=== PATIENT | female | born 1945 | race Caucasian/White ===

== ENCOUNTER 2019-01-08 05:44 | Inpatient (IN) | payer MEDICARE ==
[2019-01-08] MEDS ORDERED: CEFAZOLIN 2 GM/D5W RTU 2 GM/50 ML RTUPB IV PRN (08:47)
--- NOTE | 2019-01-08 13:55 | RADIOLOGY REPORT (SQ) ---
EXAM DESCRIPTION: CHEST SINGLE VIEW COMPLETED DATE/TIME: 01/08/2019 1:44 pm REASON FOR STUDY: PRE OP COMPARISON: None. EXAM PARAMETERS: NUMBER OF VIEWS: One view. TECHNIQUE: Single frontal radiographic view of the chest acquired. RADIATION DOSE: NA LIMITATIONS: None. FINDINGS: LUNGS AND PLEURA: Linear marking lateral aspect the left base. Differential includes subs egmental atelectasis, infiltrate or chronic change the latter of which cannot be substantiated withou t previous chest x-rays. Lungs otherwise clear. MEDIASTINUM AND HILAR STRUCTURES: No masses. Contour normal. HEART AND VASCULAR STRUCTURES: Heart normal in size. Normal vasculature. BONES: Transverse fracture through the midshaft of the right humerus with overlapping of the fracture fragments. Intramedullary noelle transverse an old fracture of the left humerus. HARDWARE: None in the chest. OTHER: No other significant finding. IMPRESSION: Linear marking left base that by radiographic appearance may represent chronic change or scarring but cannot be substantiated without previous chest x-rays. Subsegmental atelectasis or inf iltrate is in the differential. Acute transverse fracture of the midshaft of the right humerus with overlapping of the fracture fragments. TECHNICAL DOCUMENTATION: JOB ID: [id number] [employer]- All Rights Reserved Reading location - IP/workstation name: [email or web address]
[2019-01-08 14:38] LABS: HEMATOCRIT 33.5 % (36.0-47.0); MEAN CORPUSCULAR HEMOGLOBIN 31.7 pg (27.0-33.4); MEAN CORPUSCULAR VOLUME 96 fl (80-97); PLATELET COUNT 286 10^3/uL (150-450); RED BLOOD COUNT 3.49 10^6/uL (3.72-5.28); RED CELL DISTRIBUTION WIDTH 14.6 % (11.5-14.0); WHITE BLOOD COUNT 7.6 10^3/uL (4.0-10.5)
[2019-01-08] MEDS ORDERED: BUPIVACAINE HCL 0.5 % INJ/PF 30 ML SDV ONE (14:43)
[2019-01-08 14:55] LABS: ANION GAP 7 (5-19); BLOOD UREA NITROGEN 22 mg/dL (7-20); CALCIUM 9.4 mg/dL (8.4-10.2); CARBON DIOXIDE 28 mmol/L (22-30); CHLORIDE 106 mmol/L (98-107); GLUCOSE 84 mg/dL (75-110); POTASSIUM 5.1 mmol/L (3.6-5.0); SODIUM 140.9 mmol/L (137-145)
[2019-01-08] MEDS ORDERED: CEFAZOLIN 2 GM/D5W RTU 2 GM/50 ML RTUPB IV ONE (15:10)
[2019-01-08] MEDS ORDERED: HYDROMORPHONE HCL INJ/PF 2 MG/ML AMPULE ONE (15:19)
[2019-01-08] MEDS ORDERED: MIDAZOLAM 2 MG/2 ML INJ ONE (15:19)
[2019-01-08] MEDS ORDERED: FENTANYL CITRATE INJ/PF 250 MCG/5 ML AMPULE ONE (15:19)
[2019-01-08] MEDS ORDERED: PROPOFOL INJ 200 MG/20 ML VIAL IV ONE (15:20)
[2019-01-08] MEDS ORDERED: ACETAMINOPHEN 0 MG/0 ML RTUPB IV ONE (15:20)
[2019-01-08] MEDS ORDERED: DEXTROSE 40% GEL 15 GM TUBE PO PRN ×2 (16:27)
[2019-01-08] MEDS ORDERED: GLUCAGON,HUMAN RECOMB 1 MG INJ SUBCUT PRN (16:27)
[2019-01-08] MEDS ORDERED: DEXTROSE 50%-WATER 25 GM/50 ML DISP.SYRIN IV PRN ×2 (16:27)
--- NOTE | 2019-01-08 16:33 | PDOC H&P ---
History of Present Illness Admission Date/PCP: ASHLEY LAMA Patient complains of: Right arm pain History of Present Illness: CAROLYN BOWIE is a 73 year old female who sustained a fall at home onto her right humerus. She was seen at the emergency room at an outside facility where x-rays demonstrate a midshaft humerus fracture. Conservative measures were attempted including fracture bracing the patient continued to have persistent angulation and displacement. After discussing treatment options decision was made to proceed with operative treatment. Past Medical History Cardiac Medical History: Reports: Hyperlipidema, Hypertension Denies: Atrial Fibrillation, Congestive Heart Failure, Coronary Artery Disease, Myocardial Infarction, Peripheral Vascular Disease, Pulmonary Embolism, Heart Murmur Pulmonary Medical History: Reports: Bronchitis - hx of bronchitis Denies: Asthma, Chronic Obstructive Pulmonary Disease (COPD), Pneumonia, Respiratory Failure, Sleep Apnea, Tuberculosis Neurological Medical History: Reports: Seizures Malignancy Medical History: Denies: Lung Cancer GI Medical History: Denies: Crohn's Disease, Gastroesophageal Reflux Disease, Hiatal Hernia Musculoskeltal Medical History: Reports: Arthritis Denies: Fibromyalgia Psychiatric Medical History: Reports: Dementia Hematology: Denies: Anemia Past Surgical History Past Surgical History: Denies: Amputation, Colostomy Social History Smoking Status: Former Smoker Hx Recreational Drug Use: No Hx Prescription Drug Abuse: No Family History Parental Family History Reviewed: No Children Family History Reviewed: No Sibling(s) Family History Reviewed.: No Medication/Allergy Home Medications: Aspirin [Aspirin 81 mg Chewable Tablet] 81 mg PO DAILY 01/08/19 Celecoxib 200 mg PO DAILY 01/08/19 Folic Acid [Folvite 1 mg Tablet] 1 mg PO DAILY 01/08/19 Gabapentin [Neurontin 100 mg Capsule] 100 mg PO DAILY 01/08/19 Losartan Potassium 100 mg PO DAILY 01/08/19 Meclizine HCl [Antivert 25 mg Tablet] 25 mg PO DAILY PRN 01/08/19 Mirabegron [Myrbetriq] 50 mg PO DAILY 01/08/19 Oxybutynin Chloride [Oxybutynin Chloride ER] 10 mg PO DAILY 01/08/19 Pravastatin Sodium 80 mg PO DAILY 01/08/19 Ropinirole HCl 0.5 mg PO DAILY 01/08/19 Rosuvastatin Calcium 10 mg PO DAILY 01/08/19 Sertraline HCl [Zoloft 50 mg Tablet] 50 mg PO DAILY 01/08/19 Tramadol HCl [Ultram] 50 mg PO PRN PRN 01/08/19 Valsartan 160 mg PO DAILY 01/08/19 Allergies/Adverse Reactions: morphine Allergy (Verified 01/08/19 08:47) Sulfa (Sulfonamide Antibiotics) Allergy (Verified 01/08/19 08:47) Review of Systems Constitutional: ABSENT: chills, fever(s), headache(s), weight gain, weight loss Eyes: ABSENT: visual disturbances Ears: ABSENT: hearing changes Cardiovascular: ABSENT: chest pain, dyspnea on exertion, edema, orthropnea, palpitations Respiratory: ABSENT: cough, hemoptysis Gastrointestinal: ABSENT: abdominal pain, constipation, diarrhea, hematemesis, hematochezia, nausea, vomiting Genitourinary: ABSENT: dysuria, hematuria Integumentary: ABSENT: rash, wounds Neurological: ABSENT: abnormal gait, abnormal speech, confusion, dizziness, focal weakness, syncope Psychiatric: ABSENT: anxiety, depression, homidical ideation, suicidal ideation Endocrine: ABSENT: cold intolerance, heat intolerance, menstrual abnormalities, polydipsia, polyuria Hematologic/Lymphatic: ABSENT: easy bleeding, easy bruising, lymphadenopathy Physical Exam Vital Signs: Temp Pulse Resp BP Pulse Ox 98.1 F 74 16 127/70 H 97 01/08/19 13:30 01/08/19 13:30 01/08/19 13:30 01/08/19 13:30 01/08/19 13:30 Intake & Output 01/07/19 01/08/19 01/09/19 06:59 06:59 06:59 Intake Total 0 Balance 0 Weight 45 kg General appearance: PRESENT: no acute distress, well-developed, well-nourished Head exam: PRESENT: atraumatic, normocephalic Eye exam: PRESENT: conjunctiva pink, EOMI, PERRLA. ABSENT: scleral icterus Ear exam: PRESENT: normal external ear exam Mouth exam: PRESENT: moist, tongue midline Neck exam: PRESENT: full ROM. ABSENT: carotid bruit, JVD, lymphadenopathy, thyromegaly Cardiovascular exam: PRESENT: RRR. ABSENT: diastolic murmur, rubs, systolic murmur Pulses: PRESENT: normal dorsalis pedis pul, +2 pedal pulses bilateral Vascular exam: PRESENT: normal capillary refill GI/Abdominal exam: PRESENT: normal bowel sounds, soft. ABSENT: distended, guarding, mass, organolmegaly, rebound, tenderness Rectal exam: PRESENT: deferred Musculoskeletal exam: PRESENT: other - Right upper extremity: Splint fracture brace intact. Patient has full MP/IP joint flexion. Weakness with EPL and wrist extension. Wrist extension to 30 degrees with strength 3+/5. No sensory deficits. No open wound. Neurological exam: PRESENT: alert, awake, oriented to person, oriented to place, oriented to time, oriented to situation, CN II-XII grossly intact. ABSENT: motor sensory deficit Psychiatric exam: PRESENT: appropriate affect, normal mood. ABSENT: homicidal ideation, suicidal ideation Skin exam: PRESENT: dry, intact, warm. ABSENT: cyanosis, rash Results Laboratory Results: 01/08/19 14:25 01/08/19 14:25 01/08/19 01/08/19 14:25 14:25 WBC 7.6 RBC 3.49 L Hgb 11.0 L Hct 33.5 L MCV 96 MCH 31.7 MCHC 33.0 RDW 14.6 H Plt Count 286 Sodium 140.9 Potassium 5.1 H Chloride 106 Carbon Dioxide 28 Anion Gap 7 BUN 22 H Creatinine 0.86 Est GFR ( Amer) > 60 Est GFR (Non-Af Amer) > 60 Glucose 84 Calcium 9.4 Impressions: Chest X-Ray 01/08/19 00:00 IMPRESSION: Linear marking left base that by radiographic appearance may re present chronic change or scarring but cannot be substantiated without previous chest x-rays. Subsegmental atelectasis or infiltrate is in the differential. Acute transverse fracture of the midshaft of the right humerus with overlapping of the fracture fragments. Assessment & Plan - Diagnosis (1) Humerus fracture Qualifiers: Encounter type: subsequent encounter Humerus Location: shaft Fracture type: closed Fracture alignment: displaced Laterality: right Is this a current diagnosis for this admission?: Yes Plan: Patient sustained a midshaft humerus fracture. Plan is to proceed with operative intervention which includes open reduction internal fixation. Risks and benefits of surgical procedure have been explained to the patient patient v erbalized understanding consented for surgical procedure.
--- NOTE | 2019-01-08 17:02 | EKG REPORT ---
SEVERITY:- NORMAL ECG - SINUS RHYTHM : Confirmed by: hSant Bellamy MD 08-Jan-2019 17:02:26
[2019-01-08] MEDS: FENTANYL CITRATE INJ/PF 100 MCG/2 ML AMPUL IV SCH (17:21)
[2019-01-08] MEDS ORDERED: RINGERS SOLUTION,LACTATED 1,000 ML IV PRN (23:55)
[2019-01-09] MEDS: FENTANYL CITRATE INJ/PF 100 MCG/2 ML AMPUL IV SCH ×4 (05:26→17:15)
--- NOTE | 2019-01-09 08:03 | PDOC PROGRESS REPORT ---
Subjective Subjective:: Patient lying in bed comfortably. No issues overnight. Denies chest pain or shortness of breath. Reason For Visit: S42.301S UNSPECIFIED FRACTURE OF SHAFT OF HUMERUS, Physical Exam Vital Signs: Temp Pulse Resp BP Pulse Ox 98.7 F 86 18 102/58 L 98 01/09/19 03:57 01/09/19 03:57 01/09/19 03:57 01/09/19 03:57 01/09/19 03:57 Intake & Output 01/08/19 01/09/19 01/10/19 06:59 06:59 06:59 Intake Total 266 Balance 266 Weight 46.2 kg General appearance: PRESENT: no acute distress, well-developed, well-nourished Head exam: PRESENT: atraumatic, normocephalic Eye exam: PRESENT: conjunctiva pink, EOMI, PERRLA. ABSENT: scleral icterus Ear exam: PRESENT: normal external ear exam Mouth exam: PRESENT: moist, tongue midline Neck exam: PRESENT: full ROM. ABSENT: carotid bruit, JVD, lymphadenopathy, thyromegaly Cardiovascular exam: PRESENT: RRR. ABSENT: diastolic murmur, rubs, systolic murmur Pulses: PRESENT: normal dorsalis pedis pul, +2 pedal pulses bilateral Vascular exam: PRESENT: normal capillary refill GI/Abdominal exam: PRESENT: normal bowel sounds, soft. ABSENT: distended, guarding, mass, organolmegaly, rebound, tenderness Rectal exam: PRESENT: deferred Musculoskeletal exam: PRESENT: other - Right upper extremity: In fracture brace. Mild swelling and ecchymosis. Compartments soft and compressible. No sensory deficits. Full active extension of the IP/MP joints weakness with resisted EPL function intact thumb retropulsion. Neurological exam: PRESENT: alert, awake, oriented to person, oriented to place, oriented to time, oriented to situation, CN II-XII grossly intact. ABSENT: motor sensory deficit Psychiatric exam: PRESENT: appropriate affect, normal mood. ABSENT: homicidal ideation, suicidal ideation Skin exam: PRESENT: dry, intact, warm. ABSENT: cyanosis, rash Results Laboratory Results: 01/08/19 14:25 01/08/19 14:25 01/08/19 01/08/19 14:25 14:25 WBC 7.6 RBC 3.49 L Hgb 11.0 L Hct 33.5 L MCV 96 MCH 31.7 MCHC 33.0 RDW 14.6 H Plt Count 286 Sodium 140.9 Potassium 5.1 H Chloride 106 Carbon Dioxide 28 Anion Gap 7 BUN 22 H Creatinine 0.86 Est GFR ( Amer) > 60 Est GFR (Non-Af Amer) > 60 Glucose 84 Calcium 9.4 Impressions: Chest X-Ray 01/08/19 00:00 IMPRESSION: Linear marking left base that by radiographic appearance may represent chronic change or scarring but cannot be substantiated without previous chest x-rays. Subsegmental atelectasis or infiltrate is in the differential. Acute transverse fracture of the midshaft of the right humerus with overlapping of the fracture fragments. Assessment & Plan - Diagnosis (1) Humerus fracture Qualifiers: Encounter type: subsequent encounter Humerus Location: shaft Fracture type: closed Fracture alignment: displaced Laterality: right Is this a current diagnosis for this admission?: Yes Plan: Patient sustained a midshaft humerus fracture. Plan is to proceed with operative intervention which includes open reduction internal fixation, possible intramedullary nailing. Risks and benefits of surgical procedure have been explained to the patient risks include anesthetic complications, excessive bleeding, infection, injury to surrounding nerves, vessels and tendons, bruising, healing difficulties, scar formation, posttraumatic arthritis and any unforseen complication. Patient has verbalized understanding consented for the surgical procedure.
[2019-01-09] MEDS ORDERED: LIDOCAINE 2% INJ-PF (20 MG/ML) 2 ML AMPUL ONE (08:13)
[2019-01-09] MEDS ORDERED: SUCCINYLCHOLINE CHLORIDE INJ 200 MG/10 ML VIAL ONE (08:13)
[2019-01-09] MEDS ORDERED: ONDANSETRON HCL INJ/PF 4 MG/2 ML SDV ONE (08:13)
[2019-01-09] MEDS ORDERED: GLYCOPYRROLATE 1 MG/5 ML SYRINGE ONE (08:13)
[2019-01-09] MEDS ORDERED: DEXAMETHASONE SOD PHOSPHATE INJ 4 MG/1 ML VIAL ONE (08:13)
[2019-01-09] MEDS ORDERED: PROPOFOL INJ 200 MG/20 ML VIAL IV ONE (20:02)
[2019-01-09] MEDS ORDERED: MIDAZOLAM 2 MG/2 ML INJ ONE (20:02)
[2019-01-09] MEDS ORDERED: DEXMEDETOMIDINE INJ 80 MCG/20 ML VIAL IV ONE (20:02)
[2019-01-09] MEDS ORDERED: FENTANYL CITRATE INJ/PF 250 MCG/5 ML AMPULE ONE (20:02)
[2019-01-09] MEDS ORDERED: ACETAMINOPHEN 1,000 MG/100 ML RTUPB IV ONE (20:02)
[2019-01-09] MEDS ORDERED: EPHEDRINE SULFATE INJ 50 MG/1 ML AMPULE ONE (20:02)
[2019-01-09] MEDS ORDERED: CEFAZOLIN INJ 1 GM VIAL ONE (20:16)
[2019-01-09] MEDS ORDERED: BUPIVACAINE HCL 0.5 % INJ/PF 30 ML SDV ONE (21:00)
[2019-01-09] MEDS ORDERED: BUPIVACAINE HCL 0.5 % INJ/PF 30 ML SDV INJ ONE (21:30)
[2019-01-09] MEDS ORDERED: PROMETHAZINE HCL INJ 25 MG/1 ML VIAL IV PRN (21:53)
[2019-01-09] MEDS ORDERED: FENTANYL CITRATE INJ/PF 100 MCG/2 ML AMPUL IV PRN ×3 (21:53)
[2019-01-09] MEDS ORDERED: ONDANSETRON HCL INJ/PF 4 MG/2 ML SDV IV PRN (21:53)
[2019-01-09] MEDS ORDERED: DIPHENHYDRAMINE HCL 50 MG/ML VIAL IV PRN (21:53)
--- NOTE | 2019-01-09 22:44 | Operative Report ---
Operative Report DATE OF SURGERY: 01/09/19 PREOPERATIVE DIAGNOSIS: Right humeral shaft fracture POSTOPERATIVE DIAGNOSIS: Same OPERATION: Open Reduction w/ Intramedullary nail right humeral shaft fracture SURGEON: FRANK JANG ANESTHESIA: GA COMPLICATIONS: None ESTIMATED BLOOD LOSS: <75cc PROCEDURE: Indication for above procedure: 73-year-old female who sustained a fall onto her right upper extremity. Patient was seen at an outside emergency room where x-rays demonstrate midshaft humerus fracture. Patient was placed in a splint but continued to have malalignment. Patient was then placed in a fracture brace however with subsequent follow-ups fracture continues to demonstrate malposition thus decision was made to proceed with operative treatment. Risks and benefits of the surgical procedure were explained to the patient she verbalized understanding consented for the procedure. Procedure In Detail: Patient was seen and evaluated in the preoperative holding area. The RIGHT upper extremity was initialized and marked. Patient received 2g of Ancef IV for bacterial prophylaxis. Patient was taken back to the operative room where transferred to the operative table and placed under general anesthesia. Once they were adequately anesthetized patient was placed in the beachchair position. Cervical spine placed in neutral position noninvolved left upper extremity and bilateral lower extremities padded. A surgical team debriefing was performed ensuring all instrumentation was available, the surgical procedure was discussed with possible concerns reviewed. The upper extremity was prepped with ChloraPrep and draped in a sterile fashion. A timeout was done identifying correct patient, procedure and extremity everyone in attendance agree with this and verbalized no concerns. Longitudinal skin incision was made along the anterior lateral aspect of the acromion. Blunt dissection was performed thru the anterior raphe deltoid and the rotator cuff was exposed. Longitudinal incision was made thru the rotator cuff at the greater tuberosity. The starting point for the T2 Jeanette humeral nail was then established under C arm fluoroscopy. This was advanced distally. The 10 mm opening reamer was then utilized. Closed reduction was then attempted unfortunately given the amount of displacement and longevity closed reduction was not successful and thus open reduction was required. Longitudinal skin incision was made along the anterior-lateral aspect of the humerus the interval between the triceps and biceps/brachialis was established via blunt dissection. There was evidence of early healing and fibrous tissue along the fracture site along with contracture of the brachialis limiting manipulation of the fracture. Blunt dissection was continued around the fracture site. There is a anterior fracture fragment secured into scar tissue which was not disturbed. Once the fracture site was adequately exposed insuring no impingement of neurovascular structures the fracture was reduced into position and the reduction tool advanced past the fracture site. C-arm fluoroscopy was obtained confirming reduction of the fracture. Once this was confirmed the guidewire was advanced and a 8 mm x 230 mm nail was determined with the measuring device. Reaming began with a 8 mm reamer up to a 9 mm reamer getting adequate fixation. A 8 mm x 230 mm Valmora T2 humeral nail was advanced past the fracture site. Through the aiming arm small incisions were made within the deltoid blunt dissection was performed down to the humeral shaft was better care focused on avoiding disruption of neurovascular structures including the axillary nerve. Proximal locking was obtained with a 4 mm x 45 mm and a 4 mm x 34 mm proximal locking screws obtaining fixation within the far cortex. Perfect circles were then obtained in a longitudinal skin incision was made anteriorly. Blunt dissection was performed in the interval between the biceps and brachialis was utilized retracting the lateral antebrachial cutaneous nerve to expose the anterior humerus. Compression was applied to the fracture and rotation was determined with external and internal rotation of the humerus to obtain adequate alignment. The near and far cortices were then drilled and a 4 mm x 24 mm distal locking screw placed obtaining adequate fixation. Final C-arm fluoroscopy demonstrated demonstrated acceptable reduction of the fracture with compression at the fracture site. Adequate distal and proximal locking fixation. Under C-arm fluoroscopy life there was no evidence of fracture or instability. Wounds were then copiously irrigated with normal saline. Rotator cuff was closed with [id number] #2 FiberWire. Deltoid fascia was closed with 0 Vicryl suture. Subcutaneous tissues closed with 4-0 Monocryl suture. Skin was closed with bridget. 20 cc of 0.5% bupivacaine without epinephrine was injected for postoperative pain control. Wound was dressed with Acticoat and OpSite. Patient was placed in a sling with a Cryo/Cuff. Sponge counts, instrument counts, needle counts were correct. Patient was then awoken from anesthesia. Transferred from the operating room table to the operating room stretcher. There was no intraoperative complications patient tolerated procedure well stable to PACU. Postoperative plan: Patient will follow in the office in 2 weeks we will obtain radiographs. Patient will be started on Xarelto for DVT prophylaxis and discharged on aspirin. Anticipate discharge 01/11/19 to [facility]. Implants: Valmora T2 Humerus 8mm x 230mm
[2019-01-10] MEDS: FENTANYL CITRATE INJ/PF 100 MCG/2 ML AMPUL IV SCH ×4 (03:00→17:59)
[2019-01-10] MEDS: CEFAZOLIN 2 GM/D5W RTU 2 GM/50 ML RTUPB IV SCH ×4 (03:02→21:16)
[2019-01-10 05:52] LABS: HEMATOCRIT 25.7 % (36.0-47.0); MEAN CORPUSCULAR HEMOGLOBIN 31.8 pg (27.0-33.4); MEAN CORPUSCULAR HGB CONC 33.6 g/dL (32.0-36.0); MEAN CORPUSCULAR VOLUME 95 fl (80-97); PLATELET COUNT 187 10^3/uL (150-450); RED BLOOD COUNT 2.71 10^6/uL (3.72-5.28); RED CELL DISTRIBUTION WIDTH 14.2 % (11.5-14.0); WHITE BLOOD COUNT 11.3 10^3/uL (4.0-10.5)
[2019-01-10 05:57] LABS: HEMOGLOBIN 8.6 g/dL (12.0-15.5)
[2019-01-10] MEDS ORDERED: HEPARIN SOD (PORCINE) 5,000 UNIT/ML 1 ML SYRINGE SUBCUT SCH (06:00)
[2019-01-10 06:15] LABS: ANION GAP 7 (5-19); BLOOD UREA NITROGEN 23 mg/dL (7-20); CALCIUM 8.7 mg/dL (8.4-10.2); CARBON DIOXIDE 24 mmol/L (22-30); CHLORIDE 106 mmol/L (98-107); GLUCOSE 168 mg/dL (75-110); POTASSIUM 5.5 mmol/L (3.6-5.0); SODIUM 136.9 mmol/L (137-145)
--- NOTE | 2019-01-10 07:28 | PDOC PROGRESS REPORT ---
Subjective Progress Note for:: 01/10/19 Reason For Visit: S42.301S UNSPECIFIED FRACTURE OF SHAFT OF HUMERUS, 73-year-old white female postop day 1 status post ORIF of a right humerus fracture. Patient with complaints of pain overnight and dressings been reinforced twice. Physical Exam Vital Signs: Temp Pulse Resp BP Pulse Ox 36.6 C 73 16 97/51 L 98 01/10/19 05:25 01/10/19 05:25 01/10/19 05:25 01/10/19 05:25 01/10/19 05:25 Intake & Output 01/09/19 01/10/19 01/11/19 06:59 06:59 06:59 Intake Total 266 2170 Output Total 50 Balance 266 2120 Weight 46.2 kg General appearance: PRESENT: mild distress Head exam: PRESENT: normocephalic Respiratory exam: PRESENT: unlabored Cardiovascular exam: PRESENT: RRR Pulses: PRESENT: normal radial pulses Vascular exam: PRESENT: normal capillary refill GI/Abdominal exam: PRESENT: soft Rectal exam: PRESENT: deferred Extremities exam: PRESENT: other - Right upper extremity dressings are changed with nursing this morning. Wounds are well approximated with bridget. No clear continued drainage is evident. Distal neurovascular examination is intact. Neurological exam: PRESENT: alert, awake, oriented to person, oriented to place, oriented to time, oriented to situation. ABSENT: motor sensory deficit Psychiatric exam: PRESENT: appropriate affect, normal mood. ABSENT: homicidal ideation, suicidal ideation Skin exam: PRESENT: dry, intact, warm. ABSENT: cyanosis, rash Results Laboratory Results: 01/10/19 05:24 01/10/19 05:24 01/10/19 01/10/19 05:24 05:24 WBC 11.3 H RBC 2.71 L Hgb 8.6 L D Hct 25.7 L MCV 95 MCH 31.8 MCHC 33.6 RDW 14.2 H Plt Count 187 Sodium 136.9 L Potassium 5.5 H Chloride 106 Carbon Dioxide 24 Anion Gap 7 BUN 23 H Creatinine 0.82 Est GFR ( Amer) > 60 Est GFR (Non-Af Amer) > 60 Glucose 168 H Calcium 8.7 Impressions: Chest X-Ray 01/08/19 00:00 IMPRESSION: Linear marking left base that by radiographic appearance may represent chronic change or scarring but cannot be substantiated without previous chest x-rays. Subsegmental atelectasis or infiltrate is in the differential. Acute transverse fracture of the midshaft of the right humerus with overlapping of the fracture fragments. Status: Imported from PACS Assessment & Plan - Diagnosis (1) Humerus fracture Qualifiers: Encounter type: subsequent encounter Humerus Location: shaft Fracture type: closed Fracture alignment: displaced Laterality: right Is this a current diagnosis for this admission?: Yes Plan: Patient to be mobilized with physical therapy. Dressing changes as needed. Discharge planning to be determined.
--- NOTE | 2019-01-10 08:38 | RADIOLOGY REPORT (SQ) ---
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 FLUOROSCOPY TIME: 1.8 minutes 12 images saved to PACS. TECHNIQUE: Intra-operative images acquired during surgical procedure to evaluate progress. NUMBER OF IMAGES: 12 LIMITATIONS: None. FINDINGS: Fluoroscopic images from open reduction internal fixation of humeral shaft fracture. IMPRESSION: IMAGE(S) OBTAINED DURING PROCEDURE. COMMENT: Quality ID [id number]: Final reports for procedures using fluoroscopy that document radiation exp osure indices, or exposure time and number of fluorographic images (if radiation exposure indices are not available) Please consult full operative report of the attending physician for description of the procedure. TECHNICAL DOCUMENTATION: JOB ID: [id number] [email or web address]- All Rights Reserved Reading location - IP/workstation name: [email or web address]
--- NOTE | 2019-01-10 08:38 | RADIOLOGY REPORT (SQ) ---
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 FLUOROSCOPY TIME: 1.8 minutes 12 images saved to PACS. TECHNIQUE: Intra-operative images acquired during surgical procedure to evaluate progress. NUMBER OF IMAGES: 12 LIMITATIONS: None. FINDINGS: Fluoroscopic images from open reduction internal fixation of humeral shaft fracture. IMPRESSION: IMAGE(S) OBTAINED DURING PROCEDURE. COMMENT: Quality ID [id number]: Final reports for procedures using fluoroscopy that document radiation exp osure indices, or exposure time and number of fluorographic images (if radiation exposure indices are not available) Please consult full operative report of the attending physician for description of the procedure. TECHNICAL DOCUMENTATION: JOB ID: [id number] [employer]- All Rights Reserved Reading location - IP/workstation name: [email or web address]
[2019-01-10] MEDS: FENTANYL CITRATE INJ/PF 100 MCG/2 ML AMPUL IV PRN (21:15)
[2019-01-11] MEDS: FENTANYL CITRATE INJ/PF 100 MCG/2 ML AMPUL IV PRN (03:05)
[2019-01-11] MEDS: CEFAZOLIN 2 GM/D5W RTU 2 GM/50 ML RTUPB IV SCH ×4 (03:06→23:14)
[2019-01-11 06:35] LABS: HEMATOCRIT 26.6 % (36.0-47.0); HEMOGLOBIN 8.9 g/dL (12.0-15.5); MEAN CORPUSCULAR HEMOGLOBIN 31.9 pg (27.0-33.4); MEAN CORPUSCULAR HGB CONC 33.6 g/dL (32.0-36.0); MEAN CORPUSCULAR VOLUME 95 fl (80-97); PLATELET COUNT 181 10^3/uL (150-450); RED CELL DISTRIBUTION WIDTH 14.4 % (11.5-14.0); WHITE BLOOD COUNT 9.8 10^3/uL (4.0-10.5)
--- NOTE | 2019-01-11 06:58 | PDOC PROGRESS REPORT ---
Subjective Progress Note for:: 01/11/19 Reason For Visit: S42.301S UNSPECIFIED FRACTURE OF SHAFT OF HUMERUS, 73-year-old white female now postop day 2 status post open reduction internal fixation of a right diaphyseal humeral fracture. Increasing complaints of pain last night led to elevation of narcotic usage. Nursing voiced concern about increasing circumference of the upper arm. Physical Exam Vital Signs: Temp Pulse Resp BP Pulse Ox 37.2 C 94 19 121/63 98 01/10/19 23:41 01/10/19 23:41 01/10/19 23:41 01/10/19 23:41 01/10/19 23:41 Intake & Output 01/09/19 01/10/19 01/11/19 06:59 06:59 06:59 Intake Total 266 2170 680 Output Total 50 Balance 266 2120 680 Weight 46.2 kg 112.3 kg General appearance: PRESENT: mild distress Head exam: PRESENT: normocephalic Respiratory exam: PRESENT: unlabored Cardiovascular exam: PRESENT: RRR Pulses: PRESENT: normal radial pulses Vascular exam: PRESENT: normal capillary refill GI/Abdominal exam: PRESENT: soft Rectal exam: PRESENT: deferred Extremities exam: PRESENT: other - Right upper extremity dressings have a small amount of drainage that is no change from yesterday morning. There is a bluish discoloration underneath the skin throughout most of the upper extremity consistent with a tamponaded hematoma. There is brisk capillary refill, palpable radial pulse, and equal tubing mill setter strength between the 2 extremities. Neurological exam: PRESENT: alert, awake, oriented to person, oriented to place, oriented to time, oriented to situation. ABSENT: motor sensory deficit Psychiatric exam: PRESENT: agitated, anxious Skin exam: PRESENT: other - Ecchymosis Results Laboratory Results: 01/11/19 05:01 01/10/19 05:24 01/11/19 05:01 WBC 9.8 RBC 2.80 L Hgb 8.9 L Hct 26.6 L MCV 95 MCH 31.9 MCHC 33.6 RDW 14.4 H Plt Count 181 Impressions: Chest X-Ray 01/08/19 00:00 IMPRESSION: Linear marking left base that by radiographic appearance may r epresent chronic change or scarring but cannot be substantiated without previous chest x-rays. Subsegmental atelectasis or infiltrate is in the differential. Acute transverse fracture of the midshaft of the right humerus with overlapping of the fracture fragments. Fluoroscopy 01/09/19 20:25 IMPRESSION: IMAGE(S) OBTAINED DURING PROCEDURE. Humerus X-Ray 01/09/19 20:25 IMPRESSION: IMAGE(S) OBTAINED DURING PROCEDURE. Status: Imported from PACS Assessment & Plan - Diagnosis (1) Humerus fracture Qualifiers: Encounter type: subsequent encounter Humerus Location: shaft Fracture type: closed Fracture alignment: displaced Laterality: right Is this a current diagnosis for this admission?: Yes Plan: At this point we will continue on a course of observation. Pain management has been consulted. Patient feels better in a shoulder sling and is to be provided. Cryotherapy cuff in place. (2) History of ETOH abuse Is this a current diagnosis for this admission?: Yes Plan: Withdrawal prophylaxis initiated - Time Time Spent with patient: 15-24 minutes Anticipated discharge: SNF Within: when bed available
[2019-01-11] MEDS ORDERED: LORAZEPAM 1 MG TABLET (TAPER DOSING) PO SCH (09:00)
[2019-01-11] MEDS ORDERED: LORAZEPAM 1 MG TABLET PO PRN (14:21)
[2019-01-11] MEDS: OXYCODONE HCL IR 5 MG TABLET PO PRN ×2 (18:34→23:14)
--- NOTE | 2019-01-11 21:47 | CONSULTATION REPORT E ---
Consultation Report NAME: CAROLYN BOWIE : 1945 AGE: 73Y DATE: 01/11/2019 409 A TO: VARSHA LEVY PA-C FROM: FRANK JANG D.O. Requesting Physician PAIN MANAGEMENT CONSULTATION CHIEF COMPLAINT: Right arm pain due to a humerus fracture. HISTORY OF PRESENT ILLNESS: Patient is a 73-year-old female who is postop day 2 status post open reduction internal fixation of right humerus fracture. She had trouble with pain control and did not sleep at all overnight. In regards to pain medication, she is receiving fentanyl 50 mcg IV every 6 hours as needed. She states this is helpful for about 30 minutes to 1 hour and then it wears off. She denies side effects. She is not currently on any oral pain medications. She has previously taken morphine, which made her very sedated and it is listed as an allergy. She has taken Virgil and Percocet in the past, and they both were helpful without side effects. She has not tried Dilaudid. She does take tramadol on a daily basis, prescribed by her primary care doctor for lower back pain, and denies side effects to this. There are no further voiced concerns at this time. PAST MEDICAL HISTORY: Positive for: 1. Hypertension. 2. Hyperlipidemia. 3. Depression. 4. Dementia. 5. Bronchitis. PAST SURGICAL HISTORY: She denies history of surgery. ALLERGIES: MORPHINE and SULFA DRUGS. MEDICATIONS: As per chart. SOCIAL HISTORY: She is a . She lives alone with her dog, but states her daughter lives close by. She is a former smoker. She states she drinks 2 shots of vodka each night. REVIEW OF SYSTEMS: CONSTITUTIONAL: She denies fevers, chills, dizziness, weakness, loss of appetite. SKIN: Denies bruising, itching, diaphoresis, infection. HEENT: Denies visual changes, difficulty hearing. CVS: Denies chest pain, edema, heart palpitations. RESPIRATORY: Denies cough, sputum production. GI: Denies nausea, vomiting, diarrhea, abdominal pain, constipation. URINARY: Denies dysuria, hematuria. MUSCULOSKELETAL: Positive for arm pain. NEUROLOGIC: Denies weakness, bowel or bladder incontinence, saddle anesthesia. Denies any recent seizures or tremors, loss of consciousness. ENDOCRINE: Denies any recent weight changes. Review of systems is otherwise negative. PHYSICAL EXAMINATION: GENERAL: On examination, the patient is a well-developed, well-nourished 73-year-old female, who appears stated age and is awake, alert and oriented to person, place and time. She does not appear to be in acute distress. When I arrived, she was sitting comfortably upright in bed and eating lunch. VITAL SIGNS: Stable. SKIN: Warm and dry. She is not diaphoretic. HEENT: Normocephalic, atraumatic. Extraocular muscles are intact. NECK: Supple. Nontender. CVS: Radial pulses are 2+ bilaterally. LUNGS: Respirations are unlabored. ABDOMEN: Round, soft, nontender, nondistended. EXTREMITIES: Moving all extremities without difficulty, except for her right arm. She has a surgical dressing in place over the right upper arm. No drainage noted. NEUROLOGIC: Stockholder strength is 5/5 bilaterally. No tremors noted. PSYCHIATRIC: Patient is alert and oriented to person, place and time. IMPRESSION AND PLAN: Postop day 2 status post open reduction internal fixation of right humerus fracture. IV fentanyl is helpful, but it does not last long. Would recommend addition of oxycodone 5 mg p.o. q.4 hours as needed for pain control. Hold for respiratory depression, sedation, hypotension and pain score of 0/5. She can be discharged home on this medication if needed. I am hopeful that with the addition of the oral medication, she can discontinue the IV medication. No other recommendations at this time. Patient discussed with Dr. Edi Ndiaye. DICTATING PHYSICIAN: VARSHA LEVY PA-C [id number] PHY#: [id number] ID: [id number] JOB#: [id number] ACCT: [id number] cc:VARSHA LEVY PA-C > [facility]ITALRonald
[2019-01-12] MEDS: CEFAZOLIN 2 GM/D5W RTU 2 GM/50 ML RTUPB IV SCH ×4 (03:09→21:50)
[2019-01-12 05:08] LABS: HEMATOCRIT 23.2 % (36.0-47.0); MEAN CORPUSCULAR HEMOGLOBIN 32.5 pg (27.0-33.4); MEAN CORPUSCULAR HGB CONC 34.1 g/dL (32.0-36.0); MEAN CORPUSCULAR VOLUME 96 fl (80-97); PLATELET COUNT 176 10^3/uL (150-450); RED BLOOD COUNT 2.43 10^6/uL (3.72-5.28); RED CELL DISTRIBUTION WIDTH 14.4 % (11.5-14.0); WHITE BLOOD COUNT 9.2 10^3/uL (4.0-10.5)
[2019-01-12 05:10] LABS: HEMOGLOBIN 7.9 g/dL (12.0-15.5)
--- NOTE | 2019-01-12 07:52 | PDOC TRANSFER SUMMARY ---
General Admission Date/PCP: 01/08/19 16:27 KARLI LAMA Admission Date: 01/08/19 Transfer Date: 01/11/19 Accepting Facility: Other (Comments) - SNF Resuscitation Status: Full Code - Transfer Diagnosis (1) Humerus fracture Is this a current diagnosis for this admission?: Yes - Transfer Medications Home Medications: Aspirin [Aspirin 81 mg Chewable Tablet] 81 mg PO DAILY 01/08/19 Celecoxib 200 mg PO DAILY 01/08/19 Folic Acid [Folvite 1 mg Tablet] 1 mg PO DAILY 01/08/19 Gabapentin [Neurontin 100 mg Capsule] 100 mg PO DAILY 01/08/19 Losartan Potassium 100 mg PO DAILY 01/08/19 Meclizine HCl [Antivert 25 mg Tablet] 25 mg PO DAILY PRN 01/08/19 Mirabegron [Myrbetriq] 50 mg PO DAILY 01/08/19 Oxybutynin Chloride [Oxybutynin Chloride ER] 10 mg PO DAILY 01/08/19 Pravastatin Sodium 80 mg PO DAILY 01/08/19 Ropinirole HCl 0.5 mg PO DAILY 01/08/19 Rosuvastatin Calcium 10 mg PO DAILY 01/08/19 Sertraline HCl [Zoloft 50 mg Tablet] 50 mg PO DAILY 01/08/19 Tramadol HCl [Ultram] 50 mg PO PRN PRN 01/08/19 Valsartan 160 mg PO DAILY 01/08/19 Transfer Medications: Current Medications Dextrose (Dextrose Inj 50% Syringe (25 Gm/50 Ml)) 12.5 gm IV PRN PRN; Protocol PRN Reason: FOR BG 50-69 IN ALERT PATIENT Stop: 02/07/19 16:26 Dextrose (Dextrose Inj 50% Syringe (25 Gm/50 Ml)) 25 gm IV PRN PRN; Protocol PRN Reason: See Label Comments Stop: 02/07/19 16:26 Diphenhydramine HCl (Benadryl Inj 50 Mg/1 Ml Vial) 12.5 mg IV .WHILE IN PACU PRN PRN Reason: ITCHING Stop: 01/10/19 00:53 Fentanyl Citrate (Sublimaze Inj/Pf 100 Mcg/2 Ml Ampule) [address] Stop: 01/15/19 17:59 Last Admin: 01/09/19 17:15 Dose: 25 mcg Documented by: Fentanyl Citrate (Sublimaze Inj/Pf 100 Mcg/2 Ml Ampule) 25 mcg IV .WHILE IN PACU PRN PRN Reason: PAIN SCALE 2-3 Stop: 01/10/19 00:53 Fentanyl Citrate (Sublimaze Inj/Pf 100 Mcg/2 Ml Ampule) 12.5 mcg IV .WHILE IN PACU PRN PRN Reason: PAIN SCALE OF 1 Stop: 01/10/19 00:53 Fentanyl Citrate (Sublimaze Inj/Pf 100 Mcg/2 Ml Ampule) 50 mcg IV .WHILE IN PACU PRN PRN Reason: PAIN SCALE 4-5 Stop: 01/10/19 00:53 Glucagon (Glucagen Inj 1 Mg Vial) 1 mg SUBCUT PRN PRN; Protocol PRN Reason: Evaluate for BG < 70 Stop: 02/07/19 16:26 Glucose (Glutose 40% Gel 15 Gm Tube) 15 gm PO PRN PRN; Protocol PRN Reason: For BG 50-69 in Alert Patient Stop: 02/07/19 16:26 Glucose (Glutose 40% Gel 15 Gm Tube) 30 gm PO PRN PRN; Protocol PRN Reason: FOR BG < 50 IN ALERT PATIENT Stop: 02/07/19 16:26 Heparin Sodium (Porcine) (Heparin Inj 5,000 Units/Ml 1 Ml Syringe) 5,000 unit SUBCUT Q8 [facility] Stop: 02/09/19 05:59 Lactated Ringer's (Lactated Ringers 1000 Ml Iv Soln) 1,000 mls @ 70 mls/hr IV CONTINUOUS PRN PRN Reason: THIS MED IS NOT "PRN" Stop: 01/10/19 23:54 Cefazolin Sodium/Dextrose (Ancef Rtu 2 Gm/D5w 50 Ml Premix Bag) 50 mls @ 100 mls/hr IV Q6 [facility] Stop: 01/10/19 23:55 Ondansetron HCl (Zofran Inj/Pf 4 Mg/2 Ml Sdv) 4 mg IV .WHILE IN PACU PRN PRN Reason: NAUSEA AND VOMITING Stop: 01/10/19 00:53 Promethazine HCl (Phenergan Inj 25 Mg/1 Ml Vial) 12.5 mg IV .WHILE IN PACU PRN PRN Reason: NAUSEA AND VOMITING Stop: 01/10/19 00:53 - Allergies Allergies/Adverse Reactions: morphine Allergy (Verified 01/08/19 08:47) Sulfa (Sulfonamide Antibiotics) Allergy (Verified 01/08/19 08:47) - Diet/Activity Discharge Diet: As Tolerated Hospital Course Hospital Course: 73-year-old female who sustained a fall onto her right upper extremity. Patient was seen at an outside emergency room where x-rays demonstrate midshaft humerus fracture. Patient was placed in a splint but continued to have malalignment. Patient was then placed in a fracture brace however with subsequent follow-ups fracture continues to demonstrate malposition thus decision was made to proceed with operative treatment. Risks and benefits of the surgical procedure were explained to the patient she verbalized understanding consented for the procedure. Unfortunately patient's original surgery was delayed 24 hours due to emergency operative cases. Patient underwent successful open reduction to fixation of her right humeral shaft on 01/09/19. On postop day 1 patient's pain was worse overnight w/ improvement upon medication. Patient H/H decreased postoperatively to 7.9/23.7 on postop day #3 vitals remained stable. 1 unit of packed red blood cells was ordered. Patients pain improved with the oxycodone by postop day #3. She begain physical therapy/occupational therapy and progressed appropriate throughout hospital course ambulating approximately 60 feet. Decision was made to proceed with discharge to senior living facility/[facility] Physical Exam Vital Signs: Temp Pulse Resp BP Pulse Ox 98.2 F 156 H 18 118/73 96 01/09/19 17:32 01/09/19 17:32 01/09/19 17:32 01/09/19 17:32 01/09/19 17:32 Intake & Output 01/08/19 01/09/19 01/10/19 06:59 06:59 06:59 Intake Total 266 Balance 266 Weight 46.2 kg General appearance: PRESENT: no acute distress, well-developed, well-nourished Head exam: PRESENT: atraumatic, normocephalic Eye exam: PRESENT: conjunctiva pink, EOMI, PERRLA. ABSENT: scleral icterus Ear exam: PRESENT: normal external ear exam Mouth exam: PRESENT: moist, tongue midline Neck exam: ABSENT: carotid bruit, JVD, lymphadenopathy, thyromegaly Respiratory exam: PRESENT: clear to auscultation peewee. ABSENT: rales, rhonchi, wheezes Cardiovascular exam: PRESENT: RRR. ABSENT: diastolic murmur, rubs, systolic murmur Pulses: PRESENT: normal dorsalis pedis pul Vascular exam: PRESENT: normal capillary refill GI/Abdominal exam: PRESENT: normal bowel sounds, soft. ABSENT: distended, guarding, mass, organolmegaly, rebound, tenderness Rectal exam: PRESENT: deferred Extremities exam: PRESENT: full ROM. ABSENT: calf tenderness, clubbing, pedal edema Musculoskeletal exam: PRESENT: other - Right upper extremity: Shadowing along the mid incision site. Moderate swelling. Compartment soft and compressible no sign of compartment syndrome. Full IP/MP joint extension/flexion. EPL/FPL intact. No sensory deficits. Radial pulse 2+ no sensory deficits. Intact flexion extension of the elbow Neurological exam: PRESENT: alert, awake, oriented to person, oriented to place, oriented to time, oriented to situation, CN II-XII grossly intact. ABSENT: motor sensory deficit Psychiatric exam: PRESENT: appropriate affect, normal mood. ABSENT: homicidal ideation, suicidal ideation Skin exam: PRESENT: dry, intact, warm. ABSENT: cyanosis, rash Results Laboratory Results: 01/08/19 14:25 01/08/19 14:25 Impressions: Chest X-Ray 01/08/19 00:00 IMPRESSION: Linear marking left base that by radiographic appearance may represent chronic change or scarring but cannot be substantiated without previous chest x-rays. Subsegmental atelectasis or infiltrate is in the differential. Acute transverse fracture of the midshaft of the right humerus with overlapping of the fracture fragments. Plan Discharge Plan: Patient progressed throughout hospital course and orthopedically stable for discharge to senior living facility [facility] on 01/11/19. Patient was ex plained postoperative instructions including getting elbow, wrist and hand range of motion but non weightbearing of the right upper extremity. Patient will begin enteric-coated aspirin 325 mg daily for DVT prophylaxis. Patient's follow-up the office in 2 weeks. He is to call with any questions or concerns including increasing redness, swelling, pain, temperature greater than 101.5. Patient was read the above instructions and verbalized instructions and orthopedically for discharge to senior living facility on 01/11/19
[2019-01-12 18:00] LABS: ABSOLUTE BASOPHILS # (AUTO) 0.1 10^3/uL (0.0-0.2); ABSOLUTE LYMPHOCYTES (AUTO) 1.4 10^3/uL (0.5-4.7); ABSOLUTE MONOCYTES (AUTO) 1.1 10^3/uL (0.1-1.4); ABSOLUTE NEUT (AUTO) 5.9 10^3/uL (1.7-8.2); BASOPHILS % (AUTO) 0.6 % (0-2); EOSINOPHILS % (AUTO) 10.5 % (0-6); HEMATOCRIT 27.6 % (36.0-47.0); HEMOGLOBIN 9.5 g/dL (12.0-15.5); LYMPHOCYTES % (AUTO) 15.1 % (13-45); MEAN CORPUSCULAR HEMOGLOBIN 32.1 pg (27.0-33.4); MEAN CORPUSCULAR HGB CONC 34.5 g/dL (32.0-36.0); MEAN CORPUSCULAR VOLUME 93 fl (80-97); MONOCYTES % (AUTO) 11.8 % (3-13); PLATELET COUNT 163 10^3/uL (150-450); RED BLOOD COUNT 2.97 10^6/uL (3.72-5.28); RED CELL DISTRIBUTION WIDTH 14.4 % (11.5-14.0); TOTAL CELLS COUNTED % (AUTO) 100 %; WHITE BLOOD COUNT 9.5 10^3/uL (4.0-10.5)
[2019-01-13] MEDS: CEFAZOLIN 2 GM/D5W RTU 2 GM/50 ML RTUPB IV SCH ×4 (03:45→22:32)
--- NOTE | 2019-01-13 15:13 | PDOC PROGRESS REPORT ---
Subjective Progress Note for:: 01/13/19 Subjective:: Patient lying in bed comfortably. No issues overnight. Denies chest pain or shortness of breath. Pain is much improved. Has been able to ambulate. [place] better after packed red blood cells. Patient was unable to be transferred to intermediate facility due to discharge planning miscommunication and now requires additional 3 at night hospital stay. Reason For Visit: S42.301S UNSPECIFIED FRACTURE OF SHAFT OF HUMERUS, Physical Exam Vital Signs: Temp Pulse Resp BP Pulse Ox 98.9 F 111 H 14 139/64 H 95 01/13/19 10:00 01/13/19 10:00 01/13/19 10:00 01/13/19 10:00 01/13/19 10:00 Intake & Output 01/12/19 01/13/19 01/14/19 06:59 06:59 06:59 Intake Total 840 1300 50 Balance 840 1300 50 Weight 53.3 kg 54.3 kg Musculoskeletal exam: PRESENT: other - Right upper extremity: Small blood-tinged along the mid aspect of the humerus. No active drainage. Mild swelling compartments soft and compressible no sign of compartment syndrome. Overlying ecchymosis noted. No deformity. No sensory deficits. Elbow range of motion 20 degrees - 90 degrees. Full wrist flexion/extension. EPL/FPL intact. Results Laboratory Results: 01/12/19 17:35 01/10/19 05:24 01/12/19 17:35 WBC 9.5 RBC 2.97 L Hgb 9.5 L Hct 27.6 L MCV 93 MCH 32.1 MCHC 34.5 RDW 14.4 H Plt Count 163 Seg Neutrophils % 62.0 Lymphocytes % 15.1 Monocytes % 11.8 Eosinophils % 10.5 H Basophils % 0.6 Absolute Neutrophils 5.9 Absolute Lymphocytes 1.4 Absolute Monocytes 1.1 Absolute Eosinophils 1.0 H Absolute Basophils 0.1 Impressions: Chest X-Ray 01/08/19 00:00 IMPRESSION: Linear marking left base that by radiographic appearance may represent chronic change or scarring but cannot be substantiated without previous chest x-rays. Subsegmental atelectasis or infiltrate is in the differential. Acute transverse fracture of the midshaft of the right humerus with overlapping of the fracture fragments. Fluoroscopy 01/09/19 20:25 IMPRESSION: IMAGE(S) OBTAINED DURING PROCEDURE. Humerus X-Ray 01/09/19 20:25 IMPRESSION: IMAGE(S) OBTAINED DURING PROCEDURE. Assessment & Plan - Diagnosis (1) Humerus fracture Qualifiers: Encounter type: subsequent encounter Humerus Location: shaft Fracture type: closed Fracture alignment: displaced Laterality: right Is this a current diagnosis for this admission?: Yes Plan: status post IM nail right humeral shaft fracture 1. Continue physical therapy/occupational therapy 2. Acute on chronic blood loss anemia patient's H&H improved after 2 units packed red blood cells. Will restart patient's anticoagulation for DVT prophylaxis. Now that she is at lower risk for bleeding. 3. Pain control with oxycodone 4. Discharge planning patient was to be discharged to [facility] yesterday unfortunately was a miscommunication between discharge planning and thus patient will require 3 additional days of hospital stay. Anticipate discharge on pending discharge planning details.
[2019-01-13] MEDS: RIVAROXABAN 10 MG TABLET PO SCH (17:30)
[2019-01-14] MEDS: CEFAZOLIN 2 GM/D5W RTU 2 GM/50 ML RTUPB IV SCH ×3 (03:43→14:03)
[2019-01-14] MEDS: OXYCODONE HCL IR 5 MG TABLET PO PRN ×3 (09:17→22:09)
--- NOTE | 2019-01-14 13:59 | PDOC PROGRESS REPORT ---
Subjective Progress Note for:: 01/14/19 Subjective:: Patient lying in bed comfortably. No issues overnight. Denies chest pain or shortness of breath. Pain is much improved. Has been able to ambulate. [place] better after packed red blood cells. Patient was unable to be transferred to intermediate facility due to discharge planning miscommunication and now requires additional 3 at night hospital stay. Reason For Visit: S42.301S UNSPECIFIED FRACTURE OF SHAFT OF HUMERUS, Physical Exam Vital Signs: Temp Pulse Resp BP Pulse Ox 98.4 F 105 H 15 100/58 L 98 01/14/19 11:20 01/14/19 11:20 01/14/19 11:20 01/14/19 11:20 01/14/19 11:20 Intake & Output 01/13/19 01/14/19 01/15/19 06:59 06:59 06:59 Intake Total 1300 730 50 Balance 1300 730 50 Weight 54.3 kg 53.8 kg Musculoskeletal exam: PRESENT: other - Right upper extremity: Dressings clean/dry/intact. Moderate swelling and ecchymosis no change compared to prior examination. Compartments soft and compressible no sign of compartment syndrome. Intact elbow flexion/extension. Full wrist/hand and digit range of motion. Results Laboratory Results: 01/12/19 17:35 01/10/19 05:24 Impressions: Chest X-Ray 01/08/19 00:00 IMPRESSION: Linear marking left base that by radiographic appearance may represent chronic change or scarring but cannot be substantiated without previous chest x-rays. Subsegmental atelectasis or infiltrate is in the diff erential. Acute transverse fracture of the midshaft of the right humerus with overlapping of the fracture fragments. Fluoroscopy 01/09/19 20:25 IMPRESSION: IMAGE(S) OBTAINED DURING PROCEDURE. Humerus X-Ray 01/09/19 20:25 IMPRESSION: IMAGE(S) OBTAINED DURING PROCEDURE. Assessment & Plan - Diagnosis (1) Humerus fracture Qualifiers: Encounter type: subsequent encounter Humerus Location: shaft Fracture type: closed Fracture alignment: displaced Laterality: right Is this a current diagnosis for this admission?: Yes Plan: status post IM nail right humeral shaft fracture 1. Continue physical therapy/occupational therapy 2. Acute on chronic blood loss anemia patient's H&H improved after 2 units packed red blood cells. Will restart patient's anticoagulation for DVT prophylaxis. Now that she is at lower risk for bleeding. 3. Pain control with oxycodone 4. Discharge planning patient was to be discharged to [facility] Tuesday unfortunately was a miscommunication between discharge planning and thus patient will require 3 additional days of hospital stay. Anticipate discharge on 01/15/19 pending discharge planning details.
--- NOTE | 2019-01-14 14:05 | PDOC TRANSFER SUMMARY ---
General Admission Date/PCP: 01/08/19 16:27 KARLI LAMA Admission Date: 01/08/19 Transfer Date: 01/15/19 Accepting Facility: Other (Comments) - SNF Resuscitation Status: Full Code - Transfer Diagnosis (1) Humerus fracture Is this a current diagnosis for this admission?: Yes - Transfer Medications Home Medications: Aspirin [Aspirin 81 mg Chewable Tablet] 81 mg PO DAILY 01/08/19 Celecoxib 200 mg PO DAILY 01/08/19 Folic Acid [Folvite 1 mg Tablet] 1 mg PO DAILY 01/08/19 Gabapentin [Neurontin 100 mg Capsule] 100 mg PO DAILY 01/08/19 Losartan Potassium 100 mg PO DAILY 01/08/19 Meclizine HCl [Antivert 25 mg Tablet] 25 mg PO DAILY PRN 01/08/19 Mirabegron [Myrbetriq] 50 mg PO DAILY 01/08/19 Oxybutynin Chloride [Oxybutynin Chloride ER] 10 mg PO DAILY 01/08/19 Pravastatin Sodium 80 mg PO DAILY 01/08/19 Ropinirole HCl 0.5 mg PO DAILY 01/08/19 Rosuvastatin Calcium 10 mg PO DAILY 01/08/19 Sertraline HCl [Zoloft 50 mg Tablet] 50 mg PO DAILY 01/08/19 Tramadol HCl [Ultram] 50 mg PO PRN PRN 01/08/19 Valsartan 160 mg PO DAILY 01/08/19 Transfer Medications: Current Medications Dextrose (Dextrose Inj 50% Syringe (25 Gm/50 Ml)) 12.5 gm IV PRN PRN; Protocol PRN Reason: FOR BG 50-69 IN ALERT PATIENT Stop: 02/07/19 16:26 Dextrose (Dextrose Inj 50% Syringe (25 Gm/50 Ml)) 25 gm IV PRN PRN; Protocol PRN Reason: See Label Comments Stop: 02/07/19 16:26 Fentanyl Citrate (Sublimaze Inj/Pf 100 Mcg/2 Ml Ampule) 50 mcg IV Q6HP PRN PRN Reason: FOR PAIN Stop: 01/17/19 21:03 Last Admin: 01/11/19 03:05 Dose: 50 mcg Documented by: Glucagon (Glucagen Inj 1 Mg Vial) 1 mg SUBCUT PRN PRN; Protocol PRN Reason: Evaluate for BG < 70 Stop: 02/07/19 16:26 Glucose (Glutose 40% Gel 15 Gm Tube) 15 gm PO PRN PRN; Protocol PRN Reason: For BG 50-69 in Alert Patient Stop: 02/07/19 16:26 Glucose (Glutose 40% Gel 15 Gm Tube) 30 gm PO PRN PRN; Protocol PRN Reason: FOR BG < 50 IN ALERT PATIENT Stop: 02/07/19 16:26 Cefazolin Sodium/Dextrose (Ancef Rtu 2 Gm/D5w 50 Ml Premix Bag) 2 gm in 50 mls @ 100 mls/hr IV Q6A COURT Stop: 01/17/19 02:59 Last Infusion: 01/14/19 09:20 Dose: Infused Documented by: Lorazepam (Ativan 1 Mg Tablet) 1 mg PO Q8HP PRN PRN Reason: ANXIETY/AGITATION Stop: 01/18/19 14:20 Oxycodone HCl (Oxy-Ir 5 Mg Tablet) 5 mg PO Q4HP PRN PRN Reason: PAIN SCALE 1-5 Stop: 01/18/19 14:14 Last Admin: 01/14/19 09:17 Dose: 5 mg Documented by: Rivaroxaban (Xarelto 10 Mg Tablet) [address] Stop: 02/12/19 16:59 Last Admin: 01/13/19 17:30 Dose: 10 mg Documented by: - Allergies Allergies/Adverse Reactions: morphine Allergy (Verified 01/08/19 08:47) Sulfa (Sulfonamide Antibiotics) Allergy (Verified 01/08/19 08:47) - Diet/Activity Discharge Diet: As Tolerated Hospital Course Hospital Course: 73-year-old female who sustained a fall onto her right upper extremity. Patient was seen at an outside emergency room where x-rays demonstrate midshaft humerus fracture. Patient was placed in a splint but continued to have malalignment. Patient was then placed in a fracture brace however with subsequent follow-ups fracture continues to demonstrate malposition thus decision was made to proceed with operative treatment. Risks and benefits of the surgical procedure were explained to the patient she verbalized understanding consented for the procedure. Unfortunately patient's original surgery was delayed 24 hours due to emergency operative cases. Patient underwent successful open reduction to fixation of her right humeral shaft on 01/09/19. On postop day 1 patient's pain was worse overnight w/ improvement upon medication. Patient H/H decreased postoperatively to 7.9/23.7 on postop day #3 vitals remained stable. Patient recieved pRBCs and H/H improved to 9.5/27.6. Patients pain improved with the oxycodone by postop day #3. She begain physical therapy/occupational therapy and progressed appropriate throughout hospital course ambulatingw/ assistance. Decision was made to proceed with discharge to [facility] facility/[facility] Physical Exam Vital Signs: Temp Pulse Resp BP Pulse Ox 98.4 F 105 H 15 100/58 L 98 01/14/19 11:20 01/14/19 11:20 01/14/19 11:20 01/14/19 11:20 01/14/19 11:20 Intake & Output 01/13/19 01/14/19 01/15/19 06:59 06:59 06:59 Intake Total 1300 730 50 Balance 1300 730 50 Weight 54.3 kg 53.8 kg General appearance: PRESENT: no acute distress, well-developed, well-nourished Head exam: PRESENT: atraumatic, normocephalic Eye exam: PRESENT: conjunctiva pink, EOMI, PERRLA. ABSENT: scleral icterus Ear exam: PRESENT: normal external ear exam Mouth exam: PRESENT: moist, tongue midline Neck exam: ABSENT: carotid bruit, JVD, lymphadenopathy, thyromegaly Respiratory exam: PRESENT: clear to auscultation peewee. ABSENT: rales, rhonchi, wheezes Cardiovascular exam: PRESENT: RRR. ABSENT: diastolic murmur, rubs, systolic murmur Pulses: PRESENT: normal dorsalis pedis pul Vascular exam: PRESENT: normal capillary refill GI/Abdominal exam: PRESENT: normal bowel sounds, soft. ABSENT: distended, guarding, mass, organolmegaly, rebound, tenderness Rectal exam: PRESENT: deferred Extremities exam: PRESENT: full ROM. ABSENT: calf tenderness, clubbing, pedal edema Musculoskeletal exam: PRESENT: other - Right upper extremity: Dressing clean/dry/intact no erythema or drainage. Mild ecchymosis/swelling. Elbow range of motion, wrist and hand range of motion intact. No sensory deficits. No sign of compartment syndrome. Neurological exam: PRESENT: alert, awake, oriented to person, oriented to place, oriented to time, oriented to situation, CN II-XII grossly intact. ABSENT: motor sensory deficit Psychiatric exam: PRESENT: appropriate affect, normal mood. ABSENT: homicidal ideation, suicidal ideation Skin exam: PRESENT: dry, intact, warm. ABSENT: cyanosis, rash Results Laboratory Results: 01/12/19 17:35 01/10/19 05:24 Impressions: Chest X-Ray 01/08/19 00:00 IMPRESSION: Linear marking left base that by radiographic appearance may repres ent chronic change or scarring but cannot be substantiated without previous chest x-rays. Subsegmental atelectasis or infiltrate is in the differential. Acute transverse fracture of the midshaft of the right humerus with overlapping of the fracture fragments. Fluoroscopy 01/09/19 20:25 IMPRESSION: IMAGE(S) OBTAINED DURING PROCEDURE. Humerus X-Ray 01/09/19 20:25 IMPRESSION: IMAGE(S) OBTAINED DURING PROCEDURE. Plan Discharge Plan: Patient progressed throughout hospital course and orthopedically stable for discharge to [facility] facility [facility] on 01/11/19 unfortunately discharge planning miscommunication resulted in patient requiring further hospital stay. Patient was explained postoperative instructions including getting elbow, wrist and hand range of motion but non weightbearing of the right upper extremity. Patient will begin enteric-coated aspirin 325 mg daily for DVT prophylaxis. Patient's follow-up the office in 2 weeks. He is to call with any questions or concerns including increasing redness, swelling, pain, temperature greater than 101.5. Patient was read the above instructions and verbalized instructions and orthopedically for discharge to [facility] facility on 01/15/19
[2019-01-14] MEDS: RIVAROXABAN 10 MG TABLET PO SCH (16:46)
[2019-01-15] MEDS: OXYCODONE HCL IR 5 MG TABLET PO PRN (06:04)
--- NOTE | 2019-01-15 07:56 | PDOC PROGRESS REPORT ---
Subjective Subjective:: Patient lying in bed comfortably. No issues overnight. Denies chest pain or shortness of breath. Pain is much improved. Has been able to ambulate. [place] better after packed red blood cells. No complaints this morning. Reason For Visit: S42.301S UNSPECIFIED FRACTURE OF SHAFT OF HUMERUS, Physical Exam Vital Signs: Temp Pulse Resp BP Pulse Ox 99.3 F 88 16 102/52 L 96 01/14/19 23:15 01/14/19 23:15 01/14/19 23:15 01/14/19 23:15 01/14/19 23:15 Intake & Output 01/14/19 01/15/19 01/16/19 06:59 06:59 06:59 Intake Total 730 1140 Balance 730 1140 Weight 53.8 kg 53.8 kg Musculoskeletal exam: PRESENT: other - Right upper extremity: Mild serosanguineous drainage along the distal wound. Mild swelling. Compartments soft and compressible. Full hand, wrist and digit range of motion. No sensory deficits. Results Laboratory Results: 01/12/19 17:35 01/10/19 05:24 Impressions: Chest X-Ray 01/08/19 00:00 IMPRESSION: Linear marking left base that by radiographic appearance may represent chronic change or scarring but cannot be substantiated without previous chest x-rays. Subsegmental atelectasis or infiltrate is in the differential. Acute transverse fracture of the midshaft of the right humerus with overlapping of the fracture fragments. Fluoroscopy 01/09/19 20:25 IMPRESSION: IMAGE(S) OBTAINED DURING PROCEDURE. Humerus X-Ray 01/09/19 20:25 IMPRESSION: IMAGE(S) OBTAINED DURING PROCEDURE. Assessment & Plan - Diagnosis (1) Humerus fracture Qualifiers: Encounter type: subsequent encounter Humerus Location: shaft Fracture type: closed Fracture alignment: displaced Laterality: right Is this a current diagnosis for this admission?: Yes Plan: status post IM nail right humeral shaft fracture 1. Continue physical therapy/occupational therapy 2. Acute on chronic blood loss anemia patient's H&H improved after 2 units packed red blood cells. Will restart patient's anticoagulation for DVT prophylaxis. Now that she is at lower risk for bleeding. 3. Pain control with oxycodone 4. Discharge planning patient was to be discharged to [facility] today.
[2019-01-15 12:56] VITALS: BP 119/60
== END 2019-01-15 13:54 | disposition home health service (06) | DRG 493 ==
LOC: OROUT 13:10 → EDSTATUS 15:30 → 4N 16:27 → OROUT 17:21
PROVIDERS: ADMIT Orthopaedic Surgery; ATTEND Orthopaedic Surgery
PROC: 0PSF06Z Reposition Right Humeral Shaft with Intramedullary Internal Fixation Device, Open Approach (ICD-10-PCS; 2019-01-09)
PROC: 0PSF06Z Reposition Right Humeral Shaft with Intramedullary Internal Fixation Device, Open Approach (ICD-10-PCS; principal; 2019-01-09 17:00)
PROC: 30233N1 Transfusion of Nonautologous Red Blood Cells into Peripheral Vein, Percutaneous Approach (ICD-10-PCS; 2019-01-12)
DX: S42.391A Other fracture of shaft of right humerus, initial encounter for closed fracture (principal); D62 Acute posthemorrhagic anemia; M79.601 Pain in right arm; E78.5 Hyperlipidemia, unspecified; I10 Essential (primary) hypertension; G40.909 Epilepsy, unspecified, not intractable, without status epilepticus; W19.XXXA Unspecified fall, initial encounter; Y93.89 Activity, other specified; Y92.89 Other specified places as the place of occurrence of the external cause; Z79.82 Long term (current) use of aspirin; Z79.01 Long term (current) use of anticoagulants; Z79.899 Other long term (current) drug therapy
CPT/HCPCS: 01740; 36415; 36430; 71045; 80048; 85025; 85027; 86850; 86900; 86901; 86920; 93005; 93010; C1713; C1769; J0131; J0330; J0690; J1100; J1170; J2250; J2405; J2704; J3010; J3490; L3650; P9016